=== PATIENT | male | born 1955 | race American Indian/Alaskan Native ===

== ENCOUNTER 2016-09-27 11:32 | Outpatient (CLI) | payer MEDICARE ==
--- NOTE | 2016-09-27 13:21 | Cat Scan Report ---
CT HEAD WITHOUT CONTRAST: HISTORY: Headache, previous head trauma. Serial contiguous axial images were obtained through the cranium. Intravenous contrast material was not administered. The ventricles are normal in size and appearance. There is no mass effect or midline shift. No areas of abnormally increased or decreased attenuation are seen. No mass lesion is seen. The mastoid air cells and visualized portions of the sinuses are normal. IMPRESSION: Cranial CT scan within normal limits. The right anterior temporal hemorrhage and small amount of subarachnoid blood in the right sylvian fissure have resolved since 06/20/16.
== END 2016-09-27 11:33 | disposition home or self-care (01) ==
LOC: CT 11:32
PROVIDERS: ATTEND Internal Medicine
DX: G44.52 New daily persistent headache (NDPH) (principal); S09.90XD Unspecified injury of head, subsequent encounter; X58.XXXD Exposure to other specified factors, subsequent encounter
CPT/HCPCS: 70450

== ENCOUNTER 2019-07-24 09:02 | Outpatient (CLI) | payer MEDICARE ==
--- NOTE | 2019-07-24 11:50 | Ultrasound Report ---
ULTRASOUND RENAL INDICATION / CLINICAL INFORMATION: ELEVATED SERUM CREATININE/R79.89 - Other specified abnormal findi. COMPARISON: None available. FINDINGS: RIGHT KIDNEY: Length = 11.1 cm. [normal > 9 cm] - Parenchymal Thickness = 1.5 cm. [normal > 1.5 cm] - Echogenicity: Normal. - Hydronephrosis: None. - Cyst or mass: No significant abnormality. - Stones: None seen. LEFT KIDNEY: Length = 11.7 cm. [normal > 9 cm] - Parenchymal Thickness = 1.4 cm. [normal > 1.5 cm] - Echogenicity: Normal. - Hydronephrosis: None. - Cyst or mass: A 2 cm simple cyst is noted near mid pole. - Stones: None seen. URINARY BLADDER: No significant abnormality. FREE FLUID: None. ADDITIONAL FINDINGS: None. IMPRESSION: No significant abnormality. 2 cm left renal cyst. Signer Name: Joaquin Boyer Jr, MD Signed: 07/24/2019 11:46 AM Workstation Name: [id number]
== END 2019-07-24 09:03 | disposition home or self-care (01) ==
LOC: US 09:02
PROVIDERS: ATTEND Internal Medicine
DX: N28.1 Cyst of kidney, acquired (principal); R79.89 Other specified abnormal findings of blood chemistry
CPT/HCPCS: 76770